=== PATIENT | female | born 1955 | race Caucasian/White ===

== ENCOUNTER 2021-06-24 08:30 | Outpatient (CLI) | payer OTHER, SELFPAY ==
--- NOTE | 2021-06-24 08:43 | MM_ITS ---
WS: [id number] Bilateral screening digital mammogram, 06/24/2021 Clinical Data: SCREENING Comparison: 10/01/2013, 06/02/2008. Findings: The breast parenchymal pattern shows fibroglandular tissue. No spiculated masses or clustered calcifi cations are seen. There are no secondary signs of carcinoma. There are small lymph nodes in both axil la. MM/[id number] Impression: 1. Negative bilateral mammogram unchanged. 2. Recommend annual screening mammograms. BIRADS: 1-Negative FOLLOW UP: 1 Year Follow-up The CAD warehouse checker was used.
== END 2021-06-24 08:31 | disposition home or self-care (01) ==
LOC: RADSHAW 08:38
PROVIDERS: PCP Family Medicine; Visit Provider Family Medicine
DX: Z12.31 Encounter for screening mammogram for malignant neoplasm of breast (principal)
CPT/HCPCS: 77067

== ENCOUNTER 2023-08-17 13:11 | Outpatient (CLI) | payer MEDICARE, SELFPAY ==
--- NOTE | 2023-08-17 13:26 | XR_ITS ---
WS: [id number] DEXA (DUAL ENERGY X-RAY ABSORPTIOMETRY) Bone mineral density was performed using a milog machine. HISTORY: Postmenopausal COMPARISON: None available. Lumbar spine BMD (L1-L4): 1.209 g/cm2 T score: 0.2 Z score: 0.7 Total hip BMD: Left: 0.969 g/cm2. T score: -0.3 Z score: 0.1 Right: 0.931 g/cm2. T score: -0.6 Z score: -0.2 10 year probability of a major osteoporotic fracture is 12.1%. IMPRESSION: NORMAL BONE MINERAL DENSITY based upon the WHO classification for females.
== END 2023-08-17 13:12 | disposition home or self-care (01) ==
LOC: RAD 13:11
PROVIDERS: PCP Family Medicine; Visit Provider Family Medicine
DX: Z78.0 Asymptomatic menopausal state (principal)
CPT/HCPCS: 77080

== ENCOUNTER 2023-09-03 10:35 | Outpatient (CLI) | payer MEDICARE, SELFPAY ==
--- NOTE | 2023-09-03 10:39 | MM_ITS ---
WS: [id number] BILATERAL SCREENING DIGITAL TOMOSYNTHESIS MAMMOGRAM WITH CAD HISTORY: SCREENING COMPARISON: None available. Bilateral CC and MLO views with tomosynthesis and synthetic mammography submitted. Computer aided det ection analyzed. Breast composition: There are scattered areas of fibroglandular density. No suspicious masses, microc alcifications or architectural distortion. Stable intramammary lymph nodes within each axilla. IMPRESSION: MM/[place] [id number] BI-RADS: 2-Benign FOLLOW UP: 1 Year Follow-up
== END 2023-09-03 10:36 | disposition home or self-care (01) ==
LOC: RAD 10:35
PROVIDERS: PCP Family Medicine; Visit Provider Family Medicine
DX: Z12.31 Encounter for screening mammogram for malignant neoplasm of breast (principal)
CPT/HCPCS: 77063; 77067

== ENCOUNTER 2024-07-05 17:19 | Emergency (ER) | payer MEDICARE, SELFPAY ==
[2024-07-05 17:29] VITALS: BP 210/110; PULSE 83; RESP 17; TEMP 36.7; O2SAT 95; BMI 38.0
[2024-07-05 19:58] VITALS: PULSE 70; RESP 16; O2SAT 94
[2024-07-05] MEDS: tetanus-dipt-pertussis 0.5 mL SDV IM (20:01)
[2024-07-05 20:07] VITALS: BP 182/100; PULSE 70; O2SAT 97
--- NOTE | 2024-07-05 20:16 | ED_ITS ---
HPI - Wound/Laceration General: Chief Complaint: Wound/Laceration Stated Complaint: Cut finger Time Seen by Provider: 07/05/24 17:26 History of Present Illness: Patient is a zfwji-fhdu-xderlbhg female that presents to the emergency department with complaints of laceration/avulsion of tissue to the left pinky. Patient reports that she was cutting up sausage for jambalaya when she got the tip of her finger. She has avulsed the skin and part of her nail tip off. Oozing present. Upon her arrival she was also hypertensive. She states that she is taking her antihypertensives and believes her blood pressure is due to the general excitement/anxiety about what she did. Patient has no idea when her last tetanus was Related Data Allergies Allergy/AdvReac Type Severity Reaction Status Date / Time guaifenesin [From Mucinex] Allergy ALGY-Difficulty Verified 07/05/24 17:36 Breathing levofloxacin [From Levaquin] Allergy ALGY-Rash Verified 07/05/24 17:36 Review of Systems General: Reports: 10 or more systems reviewed and unremarkable except in HPI and below Physical Exam Const: COMMON NORMALS: no acute distress, patient oriented x3 and alert GENERAL APPEARANCE: cooperative ORIENTATION/CONSCIOUSNESS: Yes awake, Yes oriented to person, Yes oriented to place and Yes oriented to time Chest: COMMONS NORMALS: normal inspection of the chest Breast/axilla inspection: Yes no chest deformity, asymmetry, normal contours, no nodules, masses, tenderness Resp: COMMON NORMALS: normal respiratory effort, No retractions and No use of accessory muscles EFFORT & INSPECTION: Yes able to speak in complete sentences and Yes symmetric chest movement Cardio: COMMON NORMALS: regular rate and Peripheral pulses 2+ throughout RATE: regular rate PERIPHERAL PULSES: Peripheral pulses 2+ throughout Extremity: COMMON NORMALS: normal to inspection GENERAL: Yes normal exam except as noted Neuro: COMMON NORMALS: patient oriented x3 SENSORIUM/ORIENTATION: Yes alert, Yes oriented to person, Yes oriented to place and Yes oriented to time CRANIAL NERVES: Yes CN normal except as noted Psych: COMMON NORMALS: mental status grossly normal, Normal thought process present, cooperative, activity/motor behavior normal, denies homicidal ideation and denies suicidal ideation THOUGHT PROCESS: Normal thought process present Skin: COMMON NORMALS: no rashes or lesions noted and turgor normal NARRATIVE SKIN EXAM: Laceration to the tip of the left fifth finger. She has avulsed off half of her fingernail (the tip) and the soft tissue of her finger. This does not appear to be deep?it superficial GENERAL SKIN EXAM: no rashes or lesions noted and turgor normal Course Vital Signs: Vital signs: Vital Signs Temperature 98.1 F 07/05/24 17:29 Pulse Rate 70 07/05/24 20:07 Respiratory Rate 16 07/05/24 19:58 Blood Pressure 182/100 07/05/24 20:07 Pulse Oximetry 97 07/05/24 20:07 Oxygen Delivery Me thod Room Air 07/05/24 20:07 MDM - Wound/Laceration Medical Decision Making Patient is a 68-year-old kzagy-ecgn-ghtlhpfv female that has a finger lacera tion. It is more of an avulsion of the soft tissue. There is no nailbed involvement but she did cut off the tip of her fingernail. There is no bone or ligament exposed. It is oozing. But she does have a higher blood pressure. I talked with her about treating her hypertension but she believes it is due to anxiety. She has follow-up with her primary care doctor. She is going to be working with PCP on her hypertension. I gave her a tetanus update and cleanse the wound. We are going to send her home with materials that include gauze and Xeroform. She needs to change dressing twice daily Patient should follow-up with primary care and she may return to the emergency department as needed for new, concerning, worsening symptoms No radiology studies performed this visit Discharge Plan Discharge Patient Disposition: Home Clinical Impression: Laceration, Avulsion of skin Condition: Stable Discharge Orders: Discharge ED (Routine); Ordered 07/05/24 Ordered By: Mariza Mason Referrals: Lincoln Raymond MD [Primary Care Provider] - Discharge Diet: Advance as tolerated Discharge Activity: Resume usual activity Patient Instructions: Pain Management, Skin Avulsion (ED) Activity Restrictions/Additional Instructions: Monitor your finger healing. Watch for signs of infection which include purulence and heat to the finger. Wash with soap and water at least twice a day and cover with the materials provided. This will take a while to heal but you will be well on your way in the next 2 to 3 days. Please follow-up with your primary care doctor about your blood pressure. And as always, return to the emergency department for new, concerning, worsening symptoms Coding Level of Care Code ED Home [employer] Experience Expert for Caio Donohue
--- NOTE | 2024-07-05 20:28 | PC.NURSE ---
WOund cleaned with sterile water and zeroform gauze, roll gauze and coban to site.
[2024-07-05 20:29] VITALS: BP 180/100; PULSE 74; O2SAT 97
== END 2024-07-05 20:32 | disposition home or self-care (01) ==
PROVIDERS: Emergency Provider Nurse Practitioner; PCP Family Medicine
DX: S61.217A Laceration without foreign body of left little finger without damage to nail, initial encounter (principal); W26.0XXA Contact with knife, initial encounter; Z23 Encounter for immunization
CPT/HCPCS: 90471; 90715; 99283

== ENCOUNTER 2024-12-12 08:32 | Outpatient (CLI) | payer MEDICARE, SELFPAY ==
--- NOTE | 2024-12-12 08:37 | MM_ITS ---
WS: [id number] BILATERAL SCREENING DIGITAL TOMOSYNTHESIS MAMMOGRAM WITH CAD HISTORY: SCREENING COMPARISON: 09/03/2023, 06/24/2021 Bilateral CC and MLO views with tomosynthesis and synthetic mammography submitted. Computer aided detection analyzed. Breast composition: There are scattered areas of fibroglandular density. No suspicious masses, microcalcifications or architectural distortion. Benign axillary lymph nodes. There are a few small calcifications and arterial calcifications within each breast. MM/MM scr tomosynthesis [id number] IMPRESSION: BI-RADS: 2 - Benign. FOLLOW UP: 1 Year Follow-up
== END 2024-12-12 08:33 | disposition home or self-care (01) ==
LOC: RAD 08:33
PROVIDERS: PCP Family Medicine; Visit Provider Family Medicine
DX: Z12.31 Encounter for screening mammogram for malignant neoplasm of breast (principal); R92.323 Mammographic fibroglandular density, bilateral breasts; R59.0 Localized enlarged lymph nodes; R92.1 Mammographic calcification found on diagnostic imaging of breast
CPT/HCPCS: 77063; 77067